=== PATIENT | male | born 1955 | race Caucasian/White ===

== ENCOUNTER → 2018-04-07 | Day surgery (SDC) | payer OTHER ==
[~2018-04-07] MED LIST: Lactated Ringer's 500 ML IV ONE; Propofol 10 mg/ml Inj (20 ML) ONE
[2018-04-07 09:07] VITALS: BMI 28.8
[2018-04-07 11:35] VITALS: RESP 18
[2018-04-07 11:46] VITALS: BP 135/76; PULSE 72; TEMP 97.5; O2SAT 100
== END | disposition home or self-care (01) ==
LOC: H.ENDO 08:10
PROVIDERS: ATTEND Internal Medicine Gastroenterology
DX: Z12.11 Encounter for screening for malignant neoplasm of colon (principal); E78.5 Hyperlipidemia, unspecified; K64.8 Other hemorrhoids
CPT/HCPCS: 45378; J2001; J2704; J7120